=== PATIENT | female | born 1955 | race Caucasian/White ===

== ENCOUNTER → 2016-11-22 | Outpatient (CLI) | payer OTHER ==
[~2016-11-22] MED LIST: COUMADIN7.5 MG PO; LORTAB 10-3251 EACH PO; MELOXICAM15 MG PO; OMEPRAZOLE40 M1 PO
--- NOTE | ~2016-11-22 | CR63 ---
[facility] A Service of [facility] & [facility] RADIOLOGY TEXT RESULTS PATIENT: AI HOLLIS LOCATION: [facility] : 59 UNIT #: [id number] AGE: [address]: Henri Caro MD SEX: F ORDER DR: [id number] [facility] [address] [place], [place] [address] [id number] O MR#: [id number] Acc #: [id number] NAME: AI HOLLIS : 1955 SEX: F STUDY DATE/TIME: 11/22/2016 12:06 UNIT: [facility] ROOM: STUDY DESCRIPTION: CR Chest 2 View Attending Physician: Henri Caro M.D. Referring Physician: Henri Caro M.D. Ordering Physician: Henri Caro M.D. Primary Care Physician: Aleksandar Castillo M.D. MEDICAL IMAGING REPORT This report is preliminary unless electronic signature is present EXAM Chest PA and lateral, 11/22/2016 HISTORY Failed components right total hip replacement, preop revision of right total hip. Shortness of breath today. Smoking history for 15 years. FINDINGS The heart is normal in size. The lungs are hyperinflated but otherwise clear. There are no pleural effusions. IMPRESSION No active pulmonary disease. Dictated by... Spike Rivera M.D. THIS IS AN ELECTRONICALLY VERIFIED REPORT Spike Rivera M.D. at 11/23/2016 7:29 AM LUIZ/susan TD: 11/22/2016 15:47 JOB #: [id number] MEDICAL IMAGING REPORT Page 1 of 1 COPY
--- NOTE | ~2016-11-22 | EKG ---
PATIENT: AI HOLLIS UNIT #: [id number] Ventricular Rate: 76 BPM Atrial Rate: 76 BPM P-R Interval: 184 ms QRS Duration: 78 ms Q-T Interval: 380 ms QTC Calculation(Bezet): 427 ms P [place]: 79 degrees Calculated R [place]: 91 degrees Calculated T [place]: 76 degrees Diagnosis Line: Normal sinus rhythm Diagnosis Line: Rightward axis Diagnosis Line: Borderline ECG Diagnosis Line: No previous ECGs available Diagnosis Line: Confirmed by TATO ROSS MD ([id number]) on 11/22/2016 Diagnosis Line: 10:29:05 PM INTERPRETING MD: VANDANA BAY
--- NOTE | ~2016-11-22 | CO ---
Unit #: [id number] #: [id number] Patient: AI HOLLIS [id number] [address] [place], [place] [address] [id number] O MR#: [id number] NAME: AI HOLLIS ROOM: Age: 61 Sex: F Admission Date: 11/22/2016 : 1955 Attending Physician: Henri Caro M.D. Primary Care Physician: Aleksandar Castillo M.D. Consultation Date: 11/22/2016 CONSULTATION REPORT REASON FOR CONSULTATION Preoperative medical evaluation prior to right total hip revision scheduled by Dr. Caro for 12/06/16. HISTORY OF PRESENT ILLNESS Patient is a 61-year-old, female who presents to preprocedural screening for the reasons indicated above. She complains of right hip pain today, but has no other complaints. She has been evaluated by Dr. Caro and scheduled for the above-referenced procedure. She denies shortness of breath, dyspnea on exertion, paroxysmal nocturnal dyspnea, and obstructive sleep apnea or snoring. She denies presyncope, syncope, lightheadedness, or dizziness. No chest, arm, neck, back, or jaw pain or pressure. Denies history of myocardial infarction. No congestive heart failure. No CVA. No TIA. No diabetes or chronic kidney disease. PAST MEDICAL HISTORY Osteoarthritis, tobacco use, GERD, and mild leukocytosis. PAST SURGICAL HISTORY Right total hip arthroplasty, tubal ligation, tonsillectomy, and cholecystectomy. Please note, patient denies personal or family history or complications to anesthesia. ALLERGIES Denies latex allergy. Denies medication allergies. CURRENT MEDICATIONS 1. Omeprazole 40 mg p.o. every morning. 2. Meloxicam 15 mg p.o. every morning. SOCIAL HISTORY Patient smokes 1/2 pack of cigarettes and has done so for the past 15 years. She denies ETOH and illicit drug use. FAMILY HISTORY I reviewed Dr. Caro's office note and confirmation with the patient. Her mother had lung cancer and her father had heart disease, high blood pressure, and hyperlipidemia. REVIEW OF SYSTEMS Patient complains of pain in the right hip joint. A 10-point review of systems is conducted and otherwise negative, except as indicated under history of present illness above. Unit #: [id number] #: [id number] Patient: AI HOLLIS PHYSICAL EXAMINATION GENERAL: 61-year-old, female awake, alert, and in no acute distress. VITAL SIGNS: Temperature 97.8, heart rate 75, respiratory rate 16, blood pressure 125/77, and oxygen saturation 99% on room air. HEENT: Atraumatic and normocephalic. Sclerae nonicteric. No discharge from eyes, ears, or nares. LYMPH: No preauricular, postauricular, tonsillar, submental, anterior or posterior cervical adenopathy. ENDOCRINE: No thyromegaly, thyroid nodules, or tenderness. RESPIRATORY: Decreased all lopez bilaterally without wheezes, rhonchi, or rales. CARDIOVASCULAR: S1 and S2 regular rate and rhythm without murmur or rub. GI: Bowel sounds positive x4. Soft, nontender, and nondistended. EXTREMITIES: No edema, cyanosis, or clubbing. MUSCULOSKELETAL: Strength 5/5 in all extremities bilaterally to flexion and extension. NEUROLOGIC: Alert and oriented x3. Speech clear. Cranial nerves, II-XII, grossly intact. Follows commands. DIAGNOSTIC STUDIES LABORATORY: WBC 13.3, hemoglobin 13.9, hematocrit 42.5, and platelet count 397,000. Sed rate 22. Urinalysis: Blood 1+ and otherwise negative with culture not indicated. Sodium 140, potassium 5, chloride 105, CO2 27, glucose 123, BUN 11, creatinine 0.7, calcium 9.4, AST 20, ALT 18, alkaline phos. 83, bili. total 0.5, total protein 6.8, and albumin 4.1. PT 9.6 and INR 0.9. Blood type B+. Antibody screen negative. MRSA nasal swab report pending at this time. IMAGIN-view chest x-ray report pending at this time. CARDIOVASCULAR: 12-lead EKG: Normal sinus rhythm, rightward axis. Borderline EKG. Confirmed report pending at this time. IMPRESSION Patient is a 61-year-old female who presents to preprocedure screenin. Preoperative medical evaluation prior to revision right total hip arthroplasty as scheduled by Dr. Caro. Patient's Meyers revised cardiac risk index is equal to 0.4%. This represents the patient's perioperative risk of cardiac , fatal or nonfatal myocardial infarction, cardiopulmonary arrest, arrhythmia, and/or pulmonary edema. This has been discussed in detail with the patient. She wishes to proceed with surgery as scheduled at this time. 2. Tobacco use. Patient has been advised to stop smoking. Will order nicotine patchy postoperatively. 3. GERD. Stable. Continue proton pump inhibitor. 4. Mild leukocytosis. Patient has no signs or symptoms of infection noted in the right knee at this time. I have recommended the patient have a CBC the a.m. of OR prior to the procedure. Thank you for allowing us to participate in the care of this patient. Will gladly follow the patient postoperatively for medical management. Dictated by... Sumaya Bill A.P.R.N. for Pebbles Morley M.D. Unit #: [id number] #: [id number] Patient: AI HOLLIS WAYNE/annie TD: 11/23/2016 07:32 JOB #: [id number] CONSULTATION REPORT Page 1 of 1 X Sumaya Bill APRN X CONSULTATION REPORT
[2016-11-22 12:01] LABS: URINE APPEARANCE CLEAR; URINE BACTERIA AUWI NEG (NEGATIVE); URINE BILIRUBIN NEG (NEG); URINE BLOOD 1+ (NEG); URINE COLOR YELLOW; URINE GLUCOSE NEG (NEG); URINE KETONE NEG (NEG); URINE LEUKOCYTE ESTERASE NEG (NEG); URINE NITRATE NEG (NEG); URINE PH 7.5 (5-8); URINE PROTEIN NEG (NEG); URINE SPECIFIC GRAVITY 1.001 (1.003-1.035); URINE SQUAMOUS EPITHELIAL CELL NONE SEEN /[HPF]; URINE UROBILINOGEN 0.2 MG/DL (NEG); UWBCS1 AUWI 0-2 (0-5)
[2016-11-22 12:08] LABS: CULTURE INDICATED? NO
[2016-11-22 12:09] LABS: HEMATOCRIT 42.5 % (35.0-45.0); HEMOGLOBIN 13.9 gm/dL (12.0-16.0); MEAN CELL VOLUME 90.3 FL (83-96); MEAN CORPUSCULAR HEMOGLOBIN 29.6 PG (28-34); MEAN CORPUSCULAR HGB CONC 32.8 g/dL (30-36); MEAN PLATELET VOLUME 7.8 FL (6.5-11.5); RED BLOOD COUNT 4.7 X10e (3.90-5.30); RED CELL DISTRIBUTION WIDTH 12.7 % (11.0-15.5); WHITE BLOOD COUNT 13.3 X10e3 (4.0-10.5)
[2016-11-22 12:26] LABS: INR 0.9; PROTHROMBIN TIME (PATIENT) 9.6 SECONDS (9.6-11.5)
[2016-11-22 13:02] LABS: ALBUMIN SERUM 4.1 g/dL (3.5-5.0); BILIRUBIN,TOTAL 0.5 mg/dL (0.2-2.0); BUN/CREATININE RATIO 15.71; CALCIUM SERUM 9.4 mg/dL (8.4-10.2); CREATININE SERUM 0.7 mg/dL (0.6-1.4); GLOM FILT RATE Estimated 94.8 mL/min (>60); PROTEIN TOTAL SERUM 6.8 g/dL (6.0-8.3)
== END | disposition home or self-care (01) ==
LOC: CAMB 10:59
PROVIDERS: Orthopaedic Surgery
DX: Z01.818 Encounter for other preprocedural examination (principal); T84.090A Other mechanical complication of internal right hip prosthesis, initial encounter; F17.200 Nicotine dependence, unspecified, uncomplicated
CPT/HCPCS: 36415; 71020; 80053; 81003; 85027; 85610; 85652; 86140; 86850; 86900; 86901; 87070; 93005

== ENCOUNTER 2016-12-06 10:04 | Inpatient (IN) | payer OTHER ==
--- NOTE | ~2016-12-06 | EKG ---
PATIENT: AI HOLLIS UNIT #: [id number] Ventricular Rate: 62 BPM Atrial Rate: 62 BPM P-R Interval: 204 ms QRS Duration: 78 ms Q-T Interval: 452 ms QTC Calculation(Bezet): 458 ms P [place]: 76 degrees Calculated R [place]: 86 degrees Calculated T [place]: 91 degrees Diagnosis Line: Normal sinus rhythm Diagnosis Line: Normal ECG Diagnosis Line: When compared with ECG of 22-NOV-2016 12:27, Diagnosis Line: No significant change was found Diagnosis Line: Confirmed by JOHN WAYNE MD ([id number]) on 12/08/2016 Diagnosis Line: 9:48:59 AM INTERPRETING MD: ROSANA BAY
--- NOTE | ~2016-12-06 | EKG ---
PATIENT: AI HOLLIS UNIT #: [id number] Ventricular Rate: 62 BPM Atrial Rate: 62 BPM P-R Interval: 204 ms QRS Duration: 78 ms Q-T Interval: 452 ms QTC Calculation(Bezet): 458 ms P [place]: 76 degrees Calculated R [place]: 86 degrees Calculated T [place]: 91 degrees Diagnosis Line: Normal sinus rhythm Nonspecific ST abnormality Diagnosis Line: Borderline ECG Diagnosis Line: When compared with ECG of 22-NOV-2016 12:27, Diagnosis Line: No significant change was found Diagnosis Line: Reconfirmed by JOHN WAYNE MD ([id number]) on Diagnosis Line: 12/08/2016 9:49:33 AM INTERPRETING MD: ROSANA BAY
--- NOTE | ~2016-12-06 | CR145 ---
[facility] A Service of [facility] & [facility] RADIOLOGY TEXT RESULTS PATIENT: AI HOLLIS LOCATION: [facility] 454[address] : [birth year] UNIT #: [id number] AGE: [address]: Henri Caro MD SEX: F ORDER DR: [id number] [facility] [address] [place], [place] [address] [id number] I MR#: [id number] Acc #: [id number] NAME: AI HOLLIS : 1955 SEX: F STUDY DATE/TIME: 12/06/2016 15:04 UNIT: [facility] ROOM: [facility] STUDY DESCRIPTION: CR Hip 1 View Rt Attending Physician: Henri Caro M.D. Referring Physician: Henri Caro M.D. Ordering Physician: Henri Caro M.D. Primary Care Physician: No Primary Care Physician MEDICAL IMAGING REPORT This report is preliminary unless electronic signature is present EXAM Right hip 12/06/2016 INDICATIONS Status post hip replacement today. Hip pain. Single AP view of the right hip was obtained. COMPARISON STUDIES No comparison. FINDINGS Patient is status post total hip arthroplasty. Hardware appears well-aligned. No complications are seen. Soft tissue gas is present as expected. IMPRESSION Satisfactory appearance of a right hip arthroplasty. Dictated by... Aryan Lunsford Jr., M.D. THIS IS AN ELECTRONICALLY VERIFIED REPORT Aryan Lunsford Jr., M.D. at 12/06/2016 5:05 PM ANDREA/mesha TD: 12/06/2016 16:43 JOB #: [id number] MEDICAL IMAGING REPORT Page 1 of 1 COPY
--- NOTE | ~2016-12-06 | OR ---
Unit #: [id number] #: [id number] Patient: AI HOLLIS [id number] [address] [place], [place] [address] [id number] I MR#: [id number] NAME: AI HOLLIS ROOM: 454 Date of Procedure: 12/06/2016 Admission Date: 12/06/2016 Surgeon: Henri Caro M.D. : 1955 Attending Physician: Henri Caro M.D. Referring Physician: Henri Caro M.D. OPERATIVE REPORT PREOPERATIVE DIAGNOSIS Iodgf-wk-rafza right hip replacement. POSTOPERATIVE DIAGNOSIS Peeny-fp-jlbnu right hip replacement. PROCEDURE PERFORMED Revision of liner and head, right hip. ASSISTANTS Barry and Aaron. ANESTHESIA General. ESTIMATED BLOOD LOSS About 100 mL. INDICATIONS FOR PROCEDURE The patient is a 61-year-old lady with bnjfp-qy-xmmmq hip on the right side. She has had increasing pain. Her cobalt, chrome, iron levels are slightly elevated. She has no evidence of pseudotumor on preop studies. She is brought to the hospital for revision of her liner and head. DESCRIPTION OF PROCEDURE The patient was brought to the holding room, given 1 g of Kefzol. This will be continued postop, but discontinued within 23 hours the start time of surgery. She was then given a general anesthetic, placed in decubitus position with the right side up. Right hip was prepped and draped in a sterile fashion. Modified Aufranc incision was mapped out and made. The subcutaneous dissected away and the fascia split longitudinally. Short rotators were taken down. Posterior hip capsule was identified. This was T'd open. Cultures were obtained. The hip was dislocated and the head was removed and then the femur was inspected and found to be well fixed, this was retracted anteriorly. We then removed the liner from the acetabulum. The cup appeared to be in good position. A trial neutral 36 liner was positioned in the cup on a trial +5 head. Leg lengths appeared to be appropriate. Her hip was reduced. Stability was appropriate. Then, the ropivacaine mixture was injected. The real components were opened and positioned with a new liner in the cup and the +5, 36 head. The hip was reduced. Stability checked one last time and then closed after the ropivacaine mixture was injected and the wound was washed with Unit #: [id number] #: [id number] Patient: AI HOLLIS. The capsule was repaired with 0 Vicryl, the fascia with a running #1 STRATAFIX. The subcutaneous was closed with 0 and 2-0 Vicryl, and isabell in the skin. Sterile dressing was applied. Abduction pillow positioned and the general anesthetic was reversed. Dictated by... Shubham Haji/flaquito TD: 12/07/2016 03:21 JOB #: [id number] OPERATIVE REPORT Page 1 of 1 X Henri Caro MD X PROCEDURE OPERATIVE NOTE
--- NOTE | ~2016-12-06 | DS ---
Unit #: [id number] #: [id number] Patient: AI PEREZ [id number] [address] [address] [id number] I MR#: [id number] NAME: AI PEREZ ROOM: 454 Age: 61 Sex: F Admission Date: 12/06/2016 : 1955 Discharge Date: 12/07/2016 Attending Physician: Henri Caro M.D. Referring Physician: Henri Caro M.D. Primary Care Physician: Janice Primary Care Physician DISCHARGE SUMMARY ADMITTING DIAGNOSES Right total hip revision. DISCHARGE DIAGNOSIS Right total hip revision. HOSPITAL COURSE On 12/06/2016 Ms. Perez underwent a right total hip revision for painful right total hip and elevated chromium ion levels. The patient tolerated the procedure well. She was transported to the fourth floor, where she underwent physical therapy, medical management and anticoagulation therapy. She is doing well and is ready to be discharged. DISCHARGE CONDITION Stable. DISPOSITION Discharge home with [facility] to follow. DISCHARGE MEDICATIONS 1. Routine home medications. 2. [place] 10/325 mg 3. Coumadin 7.5 mg p.o. daily. FOLLOWUP/INSTRUCTIONS 1. Ms. Perez is going to be discharged home. 2. The patient will need a PT/INR every Tuesday and . 3. Physical therapy is to be done for dislocation precautions, ambulation. 4. The patient's follow-up appointment with Dr. Caro is in six weeks. Please call our office for that appointment date and time. Dictated by... Therese BobAGeovanyCGeovany for Shubham Haji/karen TD: 12/07/2016 12:13 JOB #: [id number] Unit #: [id number] #: [id number] Patient: AI PEREZ DISCHARGE SUMMARY Page 1 of 1 X Jacinta Reddy DISCHARGE SUMMARY
[~2016-12-06 10:04] MED LIST changes: -COUMADIN7.5 MG PO; -LORTAB 10-3251 EACH PO
[2016-12-06 11:08] LABS: BASOPHIL# 0.1 X10e3 (0-0.3); BASOPHIL% 0.5 % (0-2.5); DIFF IND NO; EOSINOPHIL# 0.3 X10e3 (0-0.7); EOSINOPHIL% 2.2 % (0.0-7.0); HEMATOCRIT 44.7 % (35.0-45.0); HEMOGLOBIN 14.7 gm/dL (12.0-16.0); LYMPHOCYTE# 2.2 X10e3 (1.0-3.5); LYMPHOCYTE% 15.1 % (17.0-45.0); MEAN CELL VOLUME 89.8 FL (83-96); MEAN CORPUSCULAR HEMOGLOBIN 29.5 PG (28-34); MEAN CORPUSCULAR HGB CONC 32.9 g/dL (30-36); MEAN PLATELET VOLUME 7.9 FL (6.5-11.5); MONOCYTE# 0.7 X10e3 (0-1.0); MONOCYTE% 5.2 % (3.0-12.0); PLATELET COUNT 392 X10e3 (140-420); RED BLOOD COUNT 4.98 X10e (3.90-5.30); RED CELL DISTRIBUTION WIDTH 13.1 % (11.0-15.5); WHITE BLOOD COUNT 14.3 X10e3 (4.0-10.5)
[2016-12-07 04:03] LABS: BASOPHIL% 0.1 % (0-2.5); DIFF IND YES; HEMOGLOBIN 11.6 gm/dL (12.0-16.0); LYMPHOCYTE# 1.2 X10e3 (1.0-3.5); LYMPHOCYTE% 6.3 % (17.0-45.0); MEAN CELL VOLUME 89.4 FL (83-96); MEAN CORPUSCULAR HEMOGLOBIN 28.9 PG (28-34); MEAN CORPUSCULAR HGB CONC 32.4 g/dL (30-36); MEAN PLATELET VOLUME 7.9 FL (6.5-11.5); MONOCYTE# 0.7 X10e3 (0-1.0); MONOCYTE% 3.8 % (3.0-12.0); NEUTROPHIL# 17.4 X10e3 (1.5-7.1); NEUTROPHIL% 89.8 % (40-75); PLATELET COUNT 318 X10e3 (140-420); RED BLOOD COUNT 4.02 X10e (3.90-5.30); RED CELL DISTRIBUTION WIDTH 12.8 % (11.0-15.5); WHITE BLOOD COUNT 19.4 X10e3 (4.0-10.5)
[2016-12-07 04:10] LABS: INR 1.2; PROTHROMBIN TIME (PATIENT) 13.2 SECONDS (9.6-11.5)
[2016-12-07 04:22] LABS: BUN/CREATININE RATIO 22.85; CALCIUM SERUM 8.5 mg/dL (8.4-10.2); CREATININE SERUM 0.7 mg/dL (0.6-1.4); GLOM FILT RATE Estimated 94.8 mL/min (>60); MAGNESIUM 1.7 mg/dL (1.6-3.0); POTASSIUM 4.3 mmol/L (3.5-5.1)
[2016-12-07 04:24] LABS: ANISOCYTOSIS SL; PLATELET ESTIMATE NORMAL (NORMAL)
[2016-12-07] MEDS ORDERED: LORTAB 10-3251 EACH PO (11:53)
[2016-12-07] MEDS ORDERED: COUMADIN7.5 MG PO (11:54)
[2016-12-07 13:40] LABS: URINE APPEARANCE CLEAR; URINE BILIRUBIN NEG (NEG); URINE BLOOD TRACE (NEG); URINE COLOR YELLOW; URINE GLUCOSE NEG (NEG); URINE KETONE NEG (NEG); URINE LEUKOCYTE ESTERASE NEG (NEG); URINE NITRATE NEG (NEG); URINE PROTEIN NEG (NEG); URINE SPECIFIC GRAVITY 1.006 (1.003-1.035); URINE UROBILINOGEN 0.2 MG/DL (NEG)
[2016-12-07 14:19] LABS: URBCS1 AUWI 0-2 /[HPF] (0-2); URINE BACTERIA AUWI NEG (NEGATIVE); URINE SQUAMOUS EPITHELIAL CELL OCC /[HPF]
== END 2016-12-07 15:50 | disposition home health service (06) | DRG 468 ==
LOC: CSUR 10:04 → C4B 11:58 → CSUR 12:00 → C4B 16:20 → CSUR 16:20 → C4B 12-07 15:50
PROVIDERS: Family Medicine; Orthopaedic Surgery; Physician Assistant Medical
PROC: 0SUR09Z Supplement Right Hip Joint, Femoral Surface with Liner, Open Approach (ICD-10-PCS; 2016-12-06)
PROC: 0SP909Z Removal of Liner from Right Hip Joint, Open Approach (ICD-10-PCS; principal; 2016-12-06 12:00)
DX: T84.84XA Pain due to internal orthopedic prosthetic devices, implants and grafts, initial encounter (principal); Y83.8 Other surgical procedures as the cause of abnormal reaction of the patient, or of later complication, without mention of misadventure at the time of the procedure
CPT/HCPCS: 73501; 80048; 81003; 83735; 84443; 85025; 85610; 87070; 87075; 87205; 88300; 93005; 94760; 94761; 97110; 97116; 97162; 97166; 97530; 97535; C1776; G8978-GP; G8979-GP; G8980-GP; J0131; J0171; J0690; J0735; J1100; J1170; J1885; J2250; J2405; J2710; J2795; J3010; J3475